=== PATIENT | female | born 1975 | race Caucasian/White ===

== ENCOUNTER 2020-05-05 12:44 | Emergency (ER) | payer MEDICARE, MEDICAID ==
[~2020-05-05] VITALS: Ht 157.5 cm; Wt 65.9 kg
[2020-05-05 12:53] VITALS: Ht 157.5 cm; Wt 65.9 kg
[2020-05-05 13:32] LABS: BASOPHILS 0.4 % (0-2); EOSINOPHILS 0.8 % (0-7); HEMATOCRIT 40.3 % (36.0-48.0); HEMOGLOBIN 13.9 g/dL (12-16); IMMATURE GRANULOCYTES 0.5 % (0-5); LYMPHOCYTES 23.5 % (15-50); MCH 33.3 pg (26.0-34.0); MCHC 34.5 g/dL (31.0-37.0); MCV 96.6 fL (80.0-100.0); MONOCYTES 5.7 % (2-11); NEUTROPHILS 69.1 % (40-80); RBC 4.17 10x6/uL (4.00-5.40); RDW 12.6 % (11.5-14.5); WBC 13.1 10x3/uL (4.8-10.8)
[2020-05-05 13:33] LABS: PLATELET COUNT 250 10x3/uL (130-400)
[2020-05-05 13:41] LABS: CALC OSMOLALITY 283 mosm/kg (275-300); CALCIUM 8.2 mg/dL (8.5-10.1); CARBON DIOXIDE 29.3 mmol/L (21.0-32.0); CHLORIDE - SERUM 104 mmol/L (98-107); CREATININE - SERUM 0.7 mg/dL (0.6-1.3); POTASSIUM - SERUM 3.7 mmol/L (3.5-5.1); SODIUM 138 mmol/L (136-145); UREA NITROGEN 6 mg/dL (7-18); eGFR NON AFRICAN AMERICAN > 90 mL/min (90-120)
[2020-05-05 13:46] LABS: GLUCOSE 277 mg/dL (74-106)
[2020-05-05 13:47] LABS: NITRITE POSITIVE (NEGATIVE); SPECIFIC GRAVITY 1.015 (1.005-1.020)
[2020-05-05 13:47] LABS: ALBUMIN 3.1 g/dL (3.4-5.0); ALKALINE PHOSPHATASE 104 U/L (30-120); ALT (SGPT) 16 U/L (10-68); BILIRUBIN - TOTAL 0.51 mg/dL (0.2-1.3); LIPASE 120 U/L (73-393); PROTEIN - SERUM 6.5 g/dL (6.4-8.2)
[2020-05-05 13:48] LABS: BILIRUBIN NEGATIVE (NEGATIVE); GLUCOSE 1000 mg/dL (NEGATIVE); KETONE NEGATIVE (NEGATIVE); UROBILINOGEN NORMAL (NORMAL)
[2020-05-05] MEDS ORDERED: IBUPROFEN800 MG PO (13:48)
[2020-05-05 13:49] LABS: BACTERIA MODERATE /hpf (NEGATIVE); EPITHELIAL CELLS 0-5 /hpf (0-5); RED CELLS - URINE 0-5 /hpf (0-5)
[2020-05-05] MEDS ORDERED: MACROBID100 MG PO (13:58)
[2020-05-05 14:24] VITALS: BP 146/78
[2020-05-05 14:37] LABS: HCG URINE NEGATIVE (NEGATIVE)
== END 2020-05-05 14:24 | disposition home or self-care (01) ==
LOC: D.ER 12:44
PROVIDERS: Family Medicine
DX: N39.0 Urinary tract infection, site not specified (principal); Z87.898 Personal history of other specified conditions; R10.2 Pelvic and perineal pain